=== PATIENT | female | born 1945 | race Caucasian/White ===

== ENCOUNTER 2020-10-24 17:16 | Emergency (ER) | payer MEDICARE, MEDICAID ==
[~2020-10-24] VITALS: Ht 154.9 cm; Wt 60.9 kg
[2020-10-24 18:10] LABS: BASOPHILS % (AUTO) 0.5 % (0.0-2.0); EOSINOPHILS % (AUTO) 1.2 % (1.0-6.0); HEMATOCRIT 37.7 % (36-46); HEMOGLOBIN 12.7 g/dL (12.0-16.0); LYMPHOCYTES # (AUTO) 1.5 K/uL (1.0-4.8); LYMPHOCYTES % (AUTO) 23.8 % (22.0-44.0); MEAN CORPUSCULAR HEMOGLOBIN 31.1 pg (26.0-34.0); MEAN CORPUSCULAR HGB CONC 33.7 G/dL (31.0-37.0); MEAN CORPUSCULAR VOLUME 92 fL (80-100); MONOCYTES # (AUTO) 0.7 K/uL (0.1-1.0); NEUTROPHILS # (AUTO) 3.9 K/uL (1.8-7.7); NEUTROPHILS % (AUTO) 62.5 % (40.0-70.0); PLATELET COUNT (AUTO) 265 K/uL (150-450); RED BLOOD CELL COUNT(AUTO) 4.09 MIL/uL (4.00-5.20); RED CELL DISTRIBUTION WIDTH 13.1 % (11.5-14.5)
[2020-10-24 18:19] LABS: ANION GAP 8 mmol/L (8-16); CALCIUM, TOTAL 7.5 mg/dL (8.8-10.5); CARBON DIOXIDE 25 mmol/L (22-29); CHLORIDE 106 mmol/L (98-107); CREATININE 0.88 mg/dL (0.60-1.30); GLOMERULAR FILTR. RATE CALC > 60 mL/min (>60); GLUCOSE,RANDOM 140 mg/dL (70-110); POTASSIUM 3.9 mmol/L (3.5-5.1); SODIUM SERUM 139 mmol/L (136-145); UREA NITROGEN, BLOOD 14 mg/dL (7-18)
[2020-10-24 18:25] LABS: ALANINE AMINOTRANSFERASE 19 U/L (12-78); ALBUMIN 2.9 g/dL (3.4-5.0); ALKALINE PHOSPHATASE 75 U/L (46-116); ASPARTATE AMINOTRANSFERASE 19 U/L (15-37); BILIRUBIN,TOTAL 0.1 mg/dL (0.1-1.0); TOTAL PROTEIN, SERUM 6.5 g/dL (6.4-8.2)
[2020-10-24 19:29] VITALS: BP 148/60
== END 2020-10-24 19:30 | disposition home or self-care (01) ==
LOC: EMS 17:16
DX: M79.671 Pain in right foot (principal); M79.672 Pain in left foot; M79.601 Pain in right arm; F17.210 Nicotine dependence, cigarettes, uncomplicated; Z90.49 Acquired absence of other specified parts of digestive tract
CPT/HCPCS: 80053; 85025; 99283

== ENCOUNTER 2021-01-23 11:43 | Emergency (ER) | payer MEDICARE, MEDICAID ==
[~2021-01-23] VITALS: Ht 154.9 cm; Wt 60.0 kg
[2021-01-23 11:55] VITALS: BP 147/64
== END 2021-01-23 12:48 | disposition home or self-care (01) ==
LOC: EMS 11:47
DX: B37.9 Candidiasis, unspecified (principal)
CPT/HCPCS: 99282; 99283

== ENCOUNTER 2024-07-24 12:39 | Emergency (ER) | payer MEDICARE, MEDICAID ==
[~2024-07-24] VITALS: Ht 154.9 cm; Wt 63.0 kg
[2024-07-24 12:58] VITALS: BP 125/71; PULSE 70; RESP 18; TEMP 98.2; O2SAT 98
[2024-07-24] MEDS: BACITRACIN 28 GM OINTMENT TP ONE (15:16)
== END 2024-07-24 15:26 | disposition home or self-care (01) ==
LOC: EMS 12:49
DX: S80.212A Abrasion, left knee, initial encounter (principal); I10 Essential (primary) hypertension; F17.210 Nicotine dependence, cigarettes, uncomplicated; Z90.49 Acquired absence of other specified parts of digestive tract; X58.XXXA Exposure to other specified factors, initial encounter; Y93.89 Activity, other specified; Y92.89 Other specified places as the place of occurrence of the external cause; Y99.8 Other external cause status
CPT/HCPCS: 99282; Z7502; Z7610